=== PATIENT | male | born 2000 | race Caucasian/White ===

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

== ENCOUNTER 2023-07-13 06:51 | Emergency (ER) | payer OTHER, SELFPAY ==
[2023-07-13 07:02] VITALS: BP 150/90; PULSE 112; RESP 20; TEMP 36.9; O2SAT 100
--- NOTE | 2023-07-13 08:40 | ED.GENADULT ---
HPI - General Adult General Chief complaint: Wound/Laceration Stated complaint: laceration Time Seen by Provider: 07/13/23 08:21 History of Present Illness HPI narrative: 22-year-old male presents to the emergency department for evaluation of injury to his left hand. Patient does admit to punching something last night. Patient is unsure of his current tetanus status. Patient denies any other pain or injury. Related Data Allergies Allergy/AdvReac Type Severity Reaction Status Date / Time No Known Allergies Allergy Verified 07/13/23 08:20 Review of Systems Review of Systems: All systems reviewed & are unremarkable except as noted in HPI and below PMFSH Social History Social History (Updated 10/19/21 @ 18:26 by Karol Ty, [employer] WORKER) Smoking packs per day: 1 Smoking cigarettes per day: 20.0 Smoking status: Current every day smoker Alcohol intake: current Exam Narrative: APPEARANCE: Well appearing, no pain, no distress, well-nourished. HEAD: normocephalic, atraumatic. EYES: PERRLA/EOMI, conjunctivae clear. NECK: Supple. No adenopathy, no masses. RESPIRATORY: Airway patent, respirations nonlabored. Clear to auscultation bilaterally, no rales, rhonchi, wheezing. CARDIOVASCULAR: Regular rate and rhythm without murmurs rubs or gallops. ABDOMINAL: Soft, nontender, nondistended, normal bowel sounds MUSCULOSKELETAL: Moves all extremities. Strength/ROM intact, No edema, No calf tenderness. NEURO: Alert. Cranial nerves II through XII intact. Good gait. Good coordination SKIN: laceration to dorsum of left hand Course Vital Signs Vital signs: Vital Signs Temperature 98.5 F 07/13/23 07:02 Pulse Rate 112 H 07/13/23 07:02 Respiratory Rate 20 07/13/23 07:02 Blood Pressure 150/90 H 07/13/23 07:02 Pulse Oximetry 100 07/13/23 07:02 Oxygen Delivery Room Air 07/13/23 07:02 Temperature 98.5 F 07/13/23 07:02 Pulse Rate 88 07/13/23 08:53 Respiratory Rate 19 07/13/23 08:53 Blood Pressure 137/85 07/13/23 08:53 Pulse Oximetry 100 07/13/23 08:53 Oxygen Delivery Room Air 07/13/23 07:02 Medical Decision Making [facility] Narrative Medical decision making narrative: 22-year-old male present to the emergency department for evaluation for a laceration to the knuckle over the 3rd finger on the left hand. Patient declined any x-rays and patient declined sutures. laceration is superficial and will heal without laceration repair Vital Signs Vital Signs: Vital Signs Temperature 98.5 F 07/13/23 07:02 Pulse Rate 112 H 07/13/23 07:02 Respiratory Rate 20 07/13/23 07:02 Blood Pressure 150/90 H 07/13/23 07:02 Pulse Oximetry 100 07/13/23 07:02 Oxygen Delivery Room Air 07/13/23 07:02 Temperature 98.5 F 07/13/23 07:02 Pulse Rate 88 07/13/23 08:53 Respiratory Rate 19 07/13/23 08:53 Blood Pressure 137/85 07/13/23 08:53 Pulse Oximetry 100 07/13/23 08:53 Oxygen Delivery Room Air 07/13/23 07:02 Discharge Plan Discharge Clinical Impression: Laceration Patient Disposition: Home, Self-Care Condition: Stable Instructions: Antibiotic Form, Steristrips (ED) Additional Instructions: you declined x-rays and suture repair of the laceration. Wound care as directed. Have close follow-up with your primary care physician. Prescriptions: No Action cephalexin 500 mg capsule 500 mg PO Q12H Qty: 20 0RF Follow-up/Referrals: UNKNOWN,DOCTOR [Primary Care Provider] -
[2023-07-13 08:53] VITALS: BP 137/85; PULSE 88; RESP 19; O2SAT 100
== END 2023-07-13 08:54 | disposition home or self-care (01) ==
PROVIDERS: Emergency Provider Emergency Medicine
DX: S61.412A Laceration without foreign body of left hand, initial encounter (principal); W22.8XXA Striking against or struck by other objects, initial encounter; F17.210 Nicotine dependence, cigarettes, uncomplicated; Z23 Encounter for immunization
CPT/HCPCS: 90471; 99282

== ENCOUNTER 2023-10-31 09:25 | Emergency (ER) | payer OTHER, SELFPAY ==
[2023-10-31] VITALS (8 sets, daily range): BP systolic 105–137; BP diastolic 56–87; PULSE 79–116; RESP 11–20; TEMP 36.6–36.8; O2SAT 97–100
--- NOTE | ~2023-10-31 | CT_ITS ---
EXAMINATION: CT hand RT wo con DATE: 10/31/2023 12:48 INDICATION: Right hand pain TECHNIQUE: High resolution computed tomography (CT) of the right hand was performed without intraveno us contrast. Additional sagittal and coronal reconstructions were performed. Automated exposure contr ol and iterative reconstruction technique were employed. The dose-length product was 439.42 mGy-cm. COMPARISON: None FINDINGS: There is a subtle nondisplaced fracture across the tubercle of the palmar aspect of the trapezium bes t appreciated on the axial images. This extends to the floor of the groove of the flexor carpi radial is tendon There is a second likely of chronic oriented nondisplaced fracture across the trapezoid serjio ears to extend to the articular surface best appreciated on the sagittal images. Neither are discerni ble on the prior radiographs. Alignment remains essentially anatomic. No other fractures identified. Joint spaces are normal. Soft tissues are unremarkable. IMPRESSION: 1. Subtle nondisplaced fractures of the trapezium and trapezoid. Reviewed, dictated and finalized at location A.
--- NOTE | ~2023-10-31 | XR_ITS ---
XR hand RT min 3V Ordering provider: Nessa Espino PA-C History: . right hand pain, injury, 2ND/3RD METACARPAL LACERATIONS . Comparison: January 24, 2015 FINDINGS: BONES: No acute fracture or dislocation. JOINT SPACES: Normal. SOFT TISSUES: Normal. IMPRESSION: No acute osseous abnormality right hand. Reviewed, dictated and finalized at location A.
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
[2023-10-31] MEDS: TETANUS,DIPHTHERIA,AC PERTUSSIS ADULT (0.5 ML) BOOSTRIX IM (10:02)
[2023-10-31 10:46] LABS: Ethanol 148 mg/dL (<10)
[2023-10-31] MEDS: IBUPROFEN 600 MG TABLET PO (10:48)
== END 2023-10-31 14:07 | disposition home or self-care (01) ==
PROVIDERS: Emergency Provider Physician Assistant
DX: S62.184A Nondisplaced fracture of trapezoid [smaller multangular], right wrist, initial encounter for closed fracture (principal); S62.174A Nondisplaced fracture of trapezium [larger multangular], right wrist, initial encounter for closed fracture; S61.411A Laceration without foreign body of right hand, initial encounter; Z23 Encounter for immunization; F17.210 Nicotine dependence, cigarettes, uncomplicated; Y04.0XXA Assault by unarmed brawl or fight, initial encounter
CPT/HCPCS: 12001; 29125; 36415; 73130; 73200; 80307; 90471; 90715; 99284; A9270

== ENCOUNTER 2023-11-02 17:10 | Emergency (ER) | payer OTHER, SELFPAY ==
[2023-11-02 18:05] VITALS: BP 122/82; PULSE 86; RESP 20; TEMP 36.6; O2SAT 100
--- NOTE | 2023-11-02 18:06 | ED.UPPEXIN ---
HPI - Extremity Injury (Upper) General Chief Complaint: Extremity Injury, Upper Stated Complaint: re-evaluation of extremity Time Seen by Provider: 11/02/23 18:06 Focused HPI: This is a 23-year-old male that presents to the emergency department for right wrist pain. He was evaluated in the ER here and diagnosed with a wrist fracture. Also had sutures placed on the hand. He has had worsening pain today which prompted him to be seen. Splint in place. Denies fevers or erythema. GENERAL: Well-appearing, well-nourished, and in no acute distress. HEAD: Normocephalic, atraumatic. CHEST: Clear to auscultation. ?No respiratory distress. HEART: Regular rate and rhythm.? NEURO: ?Alert and oriented x3. Patient screened in triage and initial orders placed.? ?Additional care and disposition to be based upon?diagnostic testing and treatment. Related Data Allergies Allergy/AdvReac Type Severity Reaction Status Date / Time No Known Allergies Allergy Verified 10/31/23 09:37 Review of Systems Review of Systems: CONSTITUTIONAL: Denies fever MUSCULOSKELETAL: Reports joint pain, and myalgia. All systems reviewed & are unremarkable except as noted in HPI and below PMFSH Past Medical History Medical History (Updated 11/02/23 @ 20:15 by Nessa Espino PA-C) History of anxiety Social History Social History (Updated 10/19/21 @ 18:26 by Karol Ty, SILK SCREEN ETCHER) Smoking packs per day: 1 Smoking cigarettes per day: 20.0 Smoking status: Current every day smoker Alcohol intake: current Exam Narrative: GENERAL: Well-appearing, well-nourished, and in no acute distress. HEAD: Normocephalic, atraumatic. EYES: EOMI. EXTREMITIES: Mild edema about the hand. normal radial pulse. Normal sensation. no erythema. Sutures in place without surrounding redness or abnormal drainage SKIN: Warm, dry, no rash. NEURO: No focal deficits. Alert and oriented x3. PSYCH: Normal mood and affect Course Course Emergency Course: Patient agrees with plan of care Vital Signs Vital signs: Vital Signs Temperature 97.9 F 11/02/23 18:05 Pulse Rate 86 11/02/23 18:05 Respiratory Rate 20 11/02/23 18:05 Blood Pressure 122/82 07/26/24 18:05 Pulse Oximetry 100 07/26/24 18:05 Oxygen Delivery Room Air 11/02/23 18:05 Temperature 97.9 F 11/02/23 18:05 Pulse Rate 86 11/02/23 18:05 Respiratory Rate 20 11/02/23 18:05 Blood Pressure 122/82 11/02/23 18:05 Pulse Oximetry 100 11/02/23 18:05 Oxygen Delivery Room Air 11/02/23 18:05 Procedures Orthopedic Splinting/Casting Injury #1: Splinting/Casting Date: 11/02/23 Splinting/Casting Time: 20:21 Side: right Upper Extremity Injury Location: wrist Upper Extremity Immobilizer: volar splint Splint: customized in ED OCL: volar Pre-Procedure Neuro Vascular Exam: normal Post-Procedure Neuro Vascular Exam: normal Other Orthopedic Equipment: other (sling) MDM - Extremity Injury (Upper) MDM Narrative Medical decision making narrative: Patient presents to the emergency department for right wrist pain. I evaluated him in the ER 2 days prior. He was noted to have nondisplaced fractures of his trapezium and trapezoid. He also had a laceration around the MCP joint dorsal surface that I sutured. He is afebrile and nontoxic appearing. He is neurovascularly intact. There was no abnormal drainage or redness surrounding his wound. I did replace his splint. Patient was taken to [facility] after I saw him so did not have any of his discharge paperwork to be able to make his follow-up appointment. Once again will be given referral for further follow-up. Concerned he may run out of pain medication before being able to see hand surgery. Will be given an additional prescription for Rienzi so he has enough. He was given warnings to return to the ER Differential Diagnosis Differential diagnosis: Likely fracture of w
[2023-11-02] MEDS: ACETAMINOPHEN 500 MG TABLET 1000 MG PO (19:44)
[2023-11-02] MEDS: oxyCODONE HCL (*CRX) 5 MG TAB IR PO (19:45)
[2023-11-02] MEDS: KETOROLAC 30 MG/ML VIAL (*BKC) IM (19:58)
--- NOTE | 2023-11-02 20:06 | PC.NURSE ---
2006-VOLAR FIBERGLASS SPLINT APPLIED BY PROVIDER. SLING APPLIED.
[2023-11-02 20:25] VITALS: BP 105/64; PULSE 79; RESP 18; TEMP 37.4; O2SAT 100
== END 2023-11-02 20:40 | disposition home or self-care (01) ==
PROVIDERS: Emergency Provider Physician Assistant
DX: S62.174D Nondisplaced fracture of trapezium [larger multangular], right wrist, subsequent encounter for fracture with routine healing (principal); S62.184D Nondisplaced fracture of trapezoid [smaller multangular], right wrist, subsequent encounter for fracture with routine healing; S61.411D Laceration without foreign body of right hand, subsequent encounter; X58.XXXD Exposure to other specified factors, subsequent encounter
CPT/HCPCS: 29125; 96372; 99283; 99284; A4565; A9270; J1885

== ENCOUNTER 2024-03-26 11:10 | Emergency (ER) | payer OTHER, SELFPAY ==
--- NOTE | 2024-03-26 11:40 | PC.NURSE ---
pt states he is unable to provide urine sample at this time
[2024-03-26] MEDS: SODIUM CHLORIDE 0.9% IV 1,000 ML 999 ML IV CONT (12:00)
[2024-03-26] MEDS: ONDANSETRON INJ 4 MG/2 ML VIAL IV PUSH (12:01)
[2024-03-26] MEDS: PROCHLORPERAZINE EDISYLATE 10 MG/2 ML VIAL 5 MG IV PUSH (12:08)
[2024-03-26 12:15] LABS: Basophils Percent Auto 0.4 % (0.2-1.2); Eosinophils Absolute Auto 0.1 K/mm3 (0-0.3); Eosinophils Percent Auto 1.6 % (0-4.4); Hematocrit 42.6 % (42.0-52.0); Immature Granulocyte Absolute 0.09 K/mm3 (0.00-0.031); Immature Granulocyte Percent A 1.1 % (0-0.5); Lymphocytes Absolute Auto 2.03 K/mm3 (0.9-3.2); Lymphocytes Percent Auto 24.3 % (18.3-44.2); Mean Corpuscular HGB Conc 35.2 g/dl (32-36); Mean Corpuscular Hemoglobin 33.1 pg (26-34); Mean Platelet Volume 8.8 fl (7.4-10.4); Monocytes Absolute Auto 0.7 K/mm3 (0.1-0.6); Monocytes Percent Auto 8.4 % (2.6-8.5); Neutrophils Absolute Auto 5.4 K/mm3 (1.3-6.7); Neutrophils Percent Auto 64.2 % (45.5-73.1); Platelet Count Result 296 k/mm3 (150-375); Red Blood Count 4.53 M/mm3 (4.6-6.20); Red Cell Distribution Width 12.3 % (11.5-14.5); White Blood Count 8.4 K/mm3 (4.5-10.0)
[2024-03-26 12:21] VITALS: BP 122/81; PULSE 76; RESP 18; TEMP 37.1; O2SAT 100
[2024-03-26 12:26] LABS: Alanine Aminotransferase 75 U/L (6-50); Albumin Level 5.3 g/dL (3.5-5.1); Alkaline Phosphatase 65 U/L (38-126); Anion Gap 10 mmol/L (4-12); Aspartate Amino Transferase 86 U/L (17-59); Bilirubin,Total 0.7 mg/dL (0.2-1.3); Blood Urea Nitrogen 15 mg/dL (9-20); Calcium 9.8 mg/dL (8.4-10.2); Carbon Dioxide 23 mmol/L (22-30); Chloride 106 mmol/L (98-107); Estimated CRCL calculation 113 ml/min; Estimated Glomerular Filt Rate > 60; Glucose 112 mg/dL (65-110); Lipase 150 U/L (23-300); Potassium 3.4 mmol/L (3.4-5.0); Sodium 139 mmol/L (137-145)
[2024-03-26 12:38] LABS: Add Urine Microscopic? YES; Appearance Urine Clear (Clear); Bacteria Urine None Seen /hpf; Bilirubin Urine Negative (Negative); Blood Urine Negative (Negative); Color Urine Dark Yellow (Yellow); Glucose Urine UA Negative (Negative); Ketones Urine 1+ mg/dL (Negative); Leukocyte Esterase Ur Trace LEU/UL (Negative); Nitrate Urine Negative (Negative); Protein Urine 2+ mg/dL (Negative); RBC Urine 0-2 /hpf (0-2); Specific Grav Ur 1.031 (1.001-1.035); Squamous Epithelial Cell Urine None Seen /hpf (Few); Urobilinogen Urine 0.2 mg/dL (<2.0); WBC Urine 0-5 /hpf (0-3)
--- NOTE | 2024-03-26 14:17 | ED_ITS ---
HPI - Nausea/Vomiting/Diarrhea General Chief complaint: Nausea/Vomiting/Diarrhea Stated complaint: vomiting x1 week Time Seen by Provider: 03/26/24 11:14 Source: patient Mode of arrival: ambulatory Limitations: no limitations History of Present Illness HPI Narrative: 23-year-old otherwise healthy his here with a complaint of nausea, vomiting diarrhea. Patient states that he was recently diagnosed with colitis finished a course of antibiotics and was at work this morning started to have nausea and vomiting. He denies any fever or chills. Had few loose stools. Feels extremely anxious. He smokes marijuana on a daily basis. MD elicited complaint: nausea, vomiting and diarrhea Onset (ago): day(s) (1) Description of vomiting: watery Description of diarrhea: watery Associated abdominal pain: No Pain consistency: constant Severity: moderate Exacerbating factors: none Relieving factors: none Associated symptoms: denies other symptoms Related Data Allergies Allergy/AdvReac Type Severity Reaction Status Date / Time No Known Allergies Allergy Verified 03/26/24 11:11 Review of Systems 2 Review of Systems: All systems reviewed & are unremarkable except as noted in HPI and below Constitutional: Constitutional: Reports no additional constitutional complaints Eyes: Eyes: Reports no additional eye complaints ENT: Reports system reviewed and no additional complaints, except as documented Cardiovascular: Cardiovascular: Reports no additional cardiovascular complaints Respiratory: Respiratory: Reports as per HPI Gastrointestinal: Gastrointestinal: Reports as per HPI Musculoskeletal: Musculoskeletal: Reports no additional musculoskeletal complaints Integumentary/Breasts: Skin/Breast: Reports system reviewed and no additional complaints, except as docu Neurologic: Reports system reviewed and no additional complaints, except as documented Endocrine: Endocrine: Reports no additional endocrine complaints [facility] Past Medical History Medical History History of anxiety Social History Social History Smoking packs per day: 1 Smoking cigarettes per day: 20.0 Smoking status: Current every day smoker Tobacco type: e-cigarettes/vaping Alcohol intake: current Exam 2 Narrative: GENERAL: Well-appearing, well-nourished, and in no acute distress. HEAD: Normocephalic, atraumatic. EYES: PERRLA and EOMI. ENT: Nares clear, no rhinorrhea or epistaxis. Mucous membranes moist. NECK: Supple. CHEST: Clear to auscultation. No respiratory distress. HEART: Regular rate and rhythm. No murmur heard. Normal peripheral pulses. ABDOMEN: Soft, nontender, nondistended, normal active bowel sounds. EXTREMITIES: Normal range of motion. No edema. SKIN: Warm, dry, no rash. NEURO: No focal deficits. Alert and oriented x3. PSYCH: Normal mood and affect. Course Course Emergency Course: Patient was given IV fluids and Zofran his nausea is much improved. I did inform him about his lab work. He feels comfortable going home advised him to drink fluids as tolerated take Zofran as needed Vital Signs Vital signs: Vital Signs Temperature 37.1 C 03/26/24 12:21 Pulse Rate 76 03/26/24 12:21 Respiratory Rate 18 03/26/24 12:21 Blood Pressure 122/81 03/26/24 12:21 Pulse Oximetry 100 03/26/24 12:21 Oxygen Delivery Autopap 03/26/24 12:21 Temperature 37.1 C 03/26/24 12:21 Pulse Rate 76 03/26/24 12:21 Respiratory Rate 18 03/26/24 12:21 Blood Pressure 122/81 03/26/24 12:21 Pulse Oximetry 100 03/26/24 12:21 Oxygen Delivery Autopap 03/26/24 12:21 MDM - Nausea/Vomiting/Diarrhea Differential Diagnosis Differential diagnosis: Likely food poisoning, gastroenteritis and dehydration Medical Records Attestation: I reviewed the patient's medical records. Lab Data Attestation: I reviewed the patient's lab results. 03/26/24 12:08 03/26/24 12:08 Labs: Lab Results 03/26/24 03/26/24 Range/Units 12:08 12:26 WBC 8.4 (4.5-10.0) K/mm3 RBC 4.53 L (4.6-6.20) M/mm3 Hgb 15.0 (14.0-18.0) g/dL Hct 42.6 (42.0-52.0) % MCV 94.0 (80-100) fl MCH 33.1 (26-34) pg MCHC 35.2 (32-36) g/dl RDW 12.3 (11.5-14.5) % Plt Count 296 (150-375) k/mm3 MPV 8.8 (7.4-10.4) fl Immature Gran % (Auto) 1.1 H (0-0.5) % Neut % (Auto) 64.2 (45.5-73.1) % Lymph % (Auto) 24.3 (18.3-44.2) % [place] % (Auto) 8.4 (2.6-8.5) % Eos % (Auto) 1.6 (0-4.4) % Baso % (Auto) 0.4 (0.2-1.2) % Lymph # (Auto) 2.03 (0.9-3.2) K/mm3 [place] # (Auto) 0.7 H (0.1-0.6) K/mm3 Eos # (Auto) 0.1 (0-0.3) K/mm3 Baso # (Auto) 0.0 (0.0-0.1) K/mm3 Abs Immat Gran (auto) 0.09 H (0.00-0.031) K/mm3 Absolute Neuts (auto) 5.4 (1.3-6.7) K/mm3 Absolute Nucleated RBC 0.000 (0.0-0.012) K/mm3 Nucleated RBC % 0.0 (0.0-0.2) % Sodium 139 (137-145) mmol/L Potassium 3.4 (3.4-5.0) mmol/L Chloride 106 (98-107) mmol/L Carbon Dioxide 23 (22-30) mmol/L Anion Gap 10 (4-12) mmol/L BUN 15 D (9-20) mg/dL Creatinine 0.80 (0.7-1.3) mg/dL Estim Creat Clear Calc 113 ml/min Estimated GFR > 60 (59 - ) Glucose 112 H (65-110) mg/dL Calcium 9.8 (8.4-10.2) mg/dL Total Bilirubin 0.7 (0.2-1.3) mg/dL AST 86 H (17-59) U/L ALT 75 H (6-50) U/L Alkaline Phosphatase 65 (38-126) U/L Total Protein 8.0 (6.3-8.2) g/dL Albumin 5.3 H (3.5-5.1) g/dL Lipase 150 (23-300) U/L Urine Color Dark yellow (Yellow) Urine Appearance Clear (Clear) Urine pH 6.0 (5.0-9.0) Ur Specific [place] 1.031 (1.001-1.035) Urine Protein 2+ H (Negative) mg/dL Urine Glucose (UA) Negative (Negative) mg/dL Urine Ketones 1+ H (Negative) mg/dL Ur Blood (Man) Negative (Negative) Urine Nitrate Negative (Negative) Urine Bilirubin Negative (Negative) Urine Urobilinogen 0.2 (<2.0) mg/dL Leukocyte Esterase Rfl Trace H (Negative) DEBBIE/UL Urine RBC 0-2 (0-2) /hpf Urine WBC 0-5 (0-3) /hpf Ur Squamous Epith Cells None seen (Few) /hpf Urine Bacteria None seen /hpf Urine Casts 3-5 Discharge Plan Discharge Clinical Impression: Gastroenteritis Patient Disposition: Home, Self-Care Condition: Stable Instructions: Acute Nausea and Vomiting (ED) Patient Language: Tajik Prescriptions: New ondansetron 4 mg tablet,disintegrating 4 mg PO Q6-8H PRN (Reason: nausea and vomiting) Qty: 14 0RF No Action cephalexin 500 mg capsule 500 mg PO Q12H Qty: 20 0RF cephalexin 500 mg capsule 500 mg PO Q8H 5 Days Qty: 15 0RF hydrocodone-acetaminophen 5-325 mg tablet 1 tablet PO Q8H PRN (Reason: pain) Qty: 20 0RF hydrocodone-acetaminophen 5-325 mg tablet 1 tablet PO Q8H PRN (Reason: pain) Qty: 10 0RF Follow-up/Referrals: Bhargavi Gallagher DO [Physician] - UNKNOWN,DOCTOR [Primary Care Provider] - Time of Disposition: 14:23
== END 2024-03-26 14:31 | disposition home or self-care (01) ==
PROVIDERS: Emergency Provider Family Medicine
DX: K52.9 Noninfective gastroenteritis and colitis, unspecified (principal); F17.290 Nicotine dependence, other tobacco product, uncomplicated
CPT/HCPCS: 36415; 80053; 81001; 83690; 85025; 96361; 96374; 96375; 99284; J0780; J2405; J7030

== ENCOUNTER 2024-05-07 06:30 | Emergency (ER) | payer OTHER, SELFPAY ==
[2024-05-07 06:31] VITALS: BP 146/89; PULSE 118; RESP 26; TEMP 36.6; O2SAT 100
--- OUTSIDE RECORDS SUMMARY | 2024-05-07 06:32 | XMS_ITS | Clinical Summary ---
Author Organization [facility] Address [address] [place] [address]. [place], [place] [id number] [place] [id number] Care Team Providers Care Resident Director Name Role Phone Genevieve Nagy MD Primary Care Provider [phone] Allergies No known active allergies Medications hydrOXYzine 25 MG tablet Take 25 mg by mouth 3 (three) times daily as needed. 1 Active promethazine 25 MG tablet Take 1 tablet (25 mg total) by mouth every 6 (six) hours as needed for Nausea. 20 tablet 1 Active capsaicin 0.025 % cream Apply topically 3 (three) times daily. 45 g 1 Active naproxen (NAPROSYN) 500 MG tablet Take 1 tablet (500 mg total) by mouth 2 (two) times daily with meals. 60 tablet 3 Active ondansetron (ZOFRAN-ODT) 4 MG disintegrating tablet Take 1 tablet (4 mg total) by mouth every 8 (eight) hours as needed for Nausea. 20 tablet 3 Active HYDROcodone-acetam inophen (NORCO) 5-325 MG tabletIndications: Acute Pain < 3 Day Supply Take 1 tablet by mouth every 6 (six) hours as needed for Pain. Indications: Acute Pain < 3 Day Supply 12 tablet 3 Active Active Problems Problem Noted Date Diagnosed Date Appendicitis 11/11/2020 Asthma, intermittent (HHS/HCC) 08/14/2011 Family History Relation Status Comments Brother 1 Alive Brother 2 Alive Brother 3 Alive Father Alive Mother Alive Sister Alive Social History Tobacco Use Types Packs/Day Years Used Date Smoking Tobacco: Every Day Electronic Cigarettes Smokeless Tobacco: Never Tobacco Cessation:Ready to Q uit: Not Asked; Counseling Given: Not Answered Alcohol Use Standard Drinks/Week Comments Not Currently 0 (1 standard drink = 0.6 oz pur e alcohol) AUDIT-C Answer Date Recorded Q1: How often do you have a drink containing alc ohol? Never 11/15/2019 Average Number of Drinks Not on file 020 Frequency of Binge Drinking Not on file 11/2019 Sex and Gender Information Value Date Recorded Sex Assigned at Not on file Legal Sex Male 4:11 PM CDT Gender Identity Not on file Sexual Orientation Not on file Last Filed Vital Signs Vital Sign Reading Time Taken Comments Blood Pressure 98/79 10/02/2022 8:24 AM CDT Pulse 68 10/02/2022 8:24 AM CDT Temperature 36.1 ??C (97 ??F) 10/02/2022 8:24 AM CDT Respiratory Rate 18 10/02/2022 8:24 AM CDT Oxygen Saturation 99% 10/02/2022 8:24 AM CDT Inhaled Oxygen Concentration - - Weight 62.3 kg (137 lb 5.6 oz) 10/02/2022 8:24 A M CDT Height 180.3 cm (5' 11 ) 10/02/2022 8:24 AM CDT Body Mass Index 19.16 10/02/2022 8:24 AM CDT Plan of Treatment Health Maintenance Due Date Last Done Comments Annual Physical 2005 Pneumococcal Vaccine: Pediatrics (0 to 5 Years) and At-Risk Patients (6 to 64 Years) (1 of 2 - PCV) 2008 Meningococcal B Vaccine (1 of 2 - Standard) 2018 Hepatitis C 2020 COVID-19 Vaccine ( - season) 2023 DTaP, Tdap and Td Vaccines (7 - Td or Tdap) 12/11/2023 12/10/2013, 07/29/2007, 07/29/2007, Additional history exists Influenza Adult (#1) 2024 05/12/2013, 04/30/2012, 02/09/2011, Additional history exists Hepatitis B Vaccines Completed 02/02/2003, 02/02/2003, 2002, Additional history exists HPV Vaccines Completed 06/18/2020, 11/03/2016 Meningococcal Vaccine Completed 06/18/2020, 014 RSV Immunizations Under 20 Months Aged Out No longer eligible based on patient's age to complete this topic Insurance [employer] [facility] Advance Directives * Full Code (Latest Code Status on File) Date Activated Date Inactivated Comments 11/11/2020 3:40 PM 11/12/2020 1:22 PM Care Teams Resident Director Relationship Specialty Start Date End Date Genevieve Nagy MD [address] [facility] [id number] [place] [address] PCP - General FAMILY PRACTICE 10/02/22
--- OUTSIDE RECORDS SUMMARY | 2024-05-07 06:32 | XMS_ITS | Clinical Summary ---
Author Organization [facility] Address [address] [place] [address] Care Team Providers Care Fire And Safety Helper Name Role Phone Rocio Conteh MD Primary Care Provider [phone] Source Comments [facility],non-owned Affiliates and Associated Physician Practices is amultiple site organization consisting of ambulatory clinics and hospital sitesin [place], [place], [place] and [place]. This disclosure is being madepursuant to the Care Everywhere program and may not contain all information available regarding this patient. Last updated 17.[facility] Allergies No known active allergies Medications * Be aware that medications may not be up to date on this document. Alwaysverify current medications with the patient. Medication Sig Dispensed Refills Start Date End Date Status albuterol HFA (PROVENTIL;VENTOLIN ;PROAIR) 108 (90 Base) MCG/ACT inhaler Inhale 2 puffs by mouth every 4 hours as needed for Wheezing or Cough OK TO SUBSTITUTE ANY BRAND. 1 Inhaler 1 02/21/2019 Active Additional Information Patient not taking.Reported on 06/18/2020 sertraline (ZOLOFT) 25 MG tabletIndications:S ocial Anxiety Disorder Take 1 (one) tablet by mouth once daily Reasons: Social Anxiety Disorder 30 tablet 1 09/20/2020 Active hydrOXYzine hcl (ATARAX) 25 MG tablet Take 1 (one) tablet by mouth 3 times daily as needed (anxiety) 45 tablet 09/20/2020 Active Active Problems Problem Noted Date Diagnosed Date Asthma, intermittent 08/14/2011 Resolved Problems Problem Noted Date Diagnosed Date Resolved Date BMI (body mass index), pedia tric, 85% to less than 95% for age 0912/10/2013 11/04/2016 Immunizations Name Administration Dates Next Due INFLUENZA VACCINE, TRIV. (AF LURIA, FLUZONE TRIVALENT; 6MO+) (IIV3) 04/30/2012,02/09/2011,02/24/2010 DTaP VACCINE IM (6wk-6yrs) 07/29/2007,,02/02/2003,11/28,2002 HEP A PEDS 2 DOSE 07/26/2006,03/27/2005 HEP B VACCINE, PED/ADOL 02/02/2003,11/28,2002,07/21 HIB BOOSTER 12/01/2003, 3,2002,09/22 Human Papilloma Virus Nineva lent Vaccine 06/18/2020,11/03/2016 INFLUENZA VACCINE 02/15/2009,03/27/2005 INFLUENZA VACCINE, QUADR. (F LUZONE; FLULAVAL; FLUARIX; AFLURIA QUADRIVALENT; 6MO+), 0.5 ML (IIV4) 05/12/2013 MENINGOCOCCAL CONJUGATE (MCV4P) 06/18/2020,12/10 MMR 07/26/2006,03/04/2004 PNEUMOCOCCAL CONJ, PEDS 02/02/2003,2002, POLIO IPV 07/29/2007, 3,2002,09/22 TDAP (7yrs+) 12/10/2013 VARICELLA 07/26/2006,12/01/2003 Social History Tobacco Use Types Packs/Day Years Used Date Smoking Tobacco: Never Smokeless Tobacco: Never Alcohol Use Standard Drinks/Week Comments Never 0 (1 standard drink = 0.6 oz pur e alcohol) Sex and Gender Information Value Date Recorded Sex Assigned at Not on file Gender Identity Not on file Sexual Orientation Not on file Last Filed Vital Signs Vital Sign Reading Time Taken Comments Blood Pressure 130/77 09/20/2020 1:16 PM CDT Pulse 80 07/29/2020 11:08 AM CDT Temperature 36.5 ??C (97.7 ??F) 11/16/2020 11:05 AM C DT Respiratory Rate 18 07/29/2020 11:08 AM CDT Oxygen Saturation 99% 07/29/2020 11:08 AM CDT Inhaled Oxygen Concentration - - Weight 59.4 kg (131 lb) 11/16/2020 11:05 AM CDT Height 169.5 cm (5' 6.75 ) 11/03/2016 1:30 PM CD T Body Mass Index - - Plan of Treatment Health Maintenance Due Date Last Done Comments PNEUMOCOCCAL VACCINE (1 of 1 - PPSV23) 2008 02/02/2003, 2002, 2002 HIV SCREENING 2017 MENINGOCOCCAL (Group B) VACC INE (1 of 2 - Standard) 2018 HEPATITIS C SCREENING 07/16/2020 COVID-19 VACCINE (1 - 2023-2 5 season) 2023 INFLUENZA VACCINE (#1) 2023 4, 04/30/2012, 02/09/2011, Additional history exists DTAP/TDAP/TD VACCINES (7 - T d or Tdap) 12/11/2023 12/10/2013, 07/29/2007, 02/08/2004, Additional history exists DEPRESSION SCREENING 04/09/2024 ZOSTER VACCINE (1 of 2) 2052 HEPATITIS B VACCINE Completed 02/02/2003, 2002, 2002, Additional history exists HIB VACCINE Completed 12/01/2003, 01/08, 2002, Additional history exists HPV VACCINE Completed 06/18/2020, 11/03/2016 MENINGOCOCCAL VACCINE Completed 06/18/2020, 014 Goals Goal Patient Goal Type Associated Problems Recent Progress Patient-Stated? Author Use safety retraint in car Lifestyle On track( 021 11:06 AM CDT) No Radha Willson, IMANI Care Teams Fire And Safety Helper Relationship Specialty Start Date End Date Rocio Conteh MD PCP - General Pediatrics 11/27/17
--- OUTSIDE RECORDS SUMMARY | 2024-05-07 06:33 | XMS_ITS | Referral Summary ---
Author Organization [facility] Address [address] [place] [address] Care Team Providers Care Tabber Name Role Phone Rocio Conteh MD Primary Care Provider [phone] Source Comments [facility],non-owned Affiliates and Associated Physician Practices is amultiple site organization consisting of ambulatory clinics and hospital sitesin [place], [place], [place] and [place]. This disclosure is being madepursuant to the Care Everywhere program and may not contain all information available regarding this patient. Last updated 17.[facility] Allergies No known active allergies Medications * [...] Mass Index - - Plan of Treatment Not on file Goals Goal Patient Goal Type Associated Problems Recent Progress Patient-Stated? Author Use safety retraint in car Lifestyle On track( 021 11:06 AM CDT) No Radha Willson, IMANI Care Teams Tabber Relationship Specialty Start Date End Date Rocio Conteh MD PCP - General Pediatrics 11/27/17
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
--- OUTSIDE RECORDS SUMMARY | 2024-05-07 06:33 | XMS_ITS | Clinical Summary ---
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 Gender Identity Not on file Sexual Orientation Not on file Obstetrics History Last Filed Vital Signs Vital Sign Reading Time Taken Comments Blood Pressure 130/82 09/26/2022 10:26 AM CDT Pulse 92 09/26/2022 10:26 AM CDT Temperature 36.5 ??C (97.7 ??F) 09/26/2022 10:26 AM C DT Respiratory Rate 16 09/26/2022 10:26 AM CDT Oxygen Saturation 99% 09/26/2022 10:26 AM CDT Inhaled Oxygen Concentration - - Weight 64.9 kg (143 lb 1.3 oz) 09/26/2022 10:26 AM CDT Height 180.3 cm (5' 11 ) 09/26/2022 10:26 AM CDT Body Mass Index 19.96 09/26/2022 10:26 AM CDT Plan of Treatment Not on file Insurance [employer] [facility] Care Teams Fisher Clam Relationship Specialty Start Date End Date No, Physician PCP - General 09/26/22
--- OUTSIDE RECORDS SUMMARY | 2024-05-07 06:33 | XMS_ITS | Patient Health Summary ---
Author Organization [facility] Address [address] [place] [address] Care Team Providers Care Biometrics Analyst Name Role Phone Rocio Conteh MD Primary Care Provider [phone] Note from [facility],non-owned Affiliates and Associated Physician Practices is amultiple site organization consisting of ambulatory clinics and hospital sitesin [place], [place], [place] and [place]. This disclosure is being madepursuant to the Care Everywhere program and may not contain all information available regarding this patient. Last updated 17.[facility] Allergies No known active allergies Medications * Be aware that medications may not be up to date on this document. Alwaysverify current medications with the patient. * albuterol HFA (PROVENTIL;VENTOLIN;PROAIR) 108 (90 Base) MCG/ACT inhaler (Started 02/21/2019) Inhale 2 puffs by mouth every 4 hours as needed for Wheezing or Cough OK TO SUBSTITUTE ANY BRAND. 1 refill remaining * sertraline (ZOLOFT) 25 MG tablet(Started 09/20/2020) Take 1 (one) tablet by mouth once daily Reasons: Social Anxiety Disorder 1 refill by 09/20/2021 * hydrOXYzine hcl (ATARAX) 25 MG tablet(Started 09/20/2020) Take 1 (one) tablet by mouth 3 times daily as needed (anxiety) Active Problems Problem Noted Date Diagnosed Date Asthma, intermittent 08/14/2011 Resolved Problems Problem Noted Date Diagnosed Date Resolved Date BMI (body mass index), pedia tric, 85% to less than 95% for age 0912/10/2013 11/04/2016 Immunizations * INFLUENZA VACCINE, TRIV. (AFLURIA, FLUZONE TRIVALENT; 6MO+) (IIV3)(Given 04/30/2012, 02/09/2011, 02/24/2010) * DTaP VACCINE IM (6wk-6yrs)(Given 07/29/2007, 02/08/2004, 02/02/2003, 2002, 2002) * HEP A PEDS 2 DOSE(Given 07/26/2006, 03/27/2005) * HEP B VACCINE, PED/ADOL(Given 02/02/2003, 2002, 2002, 2002) * HIB BOOSTER(Given 12/01/2003, 02/02/2003, 2002, 2002) * Human Papilloma Virus Ninevalent Vaccine(Given 06/18/2020, 11/03/2016) * INFLUENZA VACCINE(Given 02/15/2009, 03/27/2005) * INFLUENZA VACCINE, QUADR. (FLUZONE; FLULAVAL; FLUARIX; AFLURIA QUADRIVALENT; 6MO+), 0.5 ML (IIV4)(Given 05/12/2013) * MENINGOCOCCAL CONJUGATE (MCV4P)(Given 06/18/2020, 12/10/2013) * MMR(Given 07/26/2006, 03/04/2004) * PNEUMOCOCCAL CONJ, PEDS(Given 02/02/2003, 2002, 2002) * POLIO IPV(Given 07/29/2007, 02/02/2003, 2002, 2002) * TDAP (7yrs+)(Given 12/10/2013) * VARICELLA(Given 07/26/2006, 12/01/2003) Social History Tobacco Use Types Packs/Day Years [...] CD T Body Mass Index - - Procedures * IMAGING/RADIOLOGY/XRAY RESULTS ORDER(Performed 06/17/2022) * IMAGING/RADIOLOGY/XRAY RESULTS ORDER(Performed 06/07/2022) * IMAGING/RADIOLOGY/XRAY RESULTS ORDER(Performed 02/10/2021) * IMAGING/RADIOLOGY/XRAY RESULTS ORDER(Performed 02/10/2021) * PATHOLOGY/CYTOLOGY REPORT ORDER(Performed 11/12/2020) * IMAGING/RADIOLOGY/XRAY RESULTS ORDER(Performed 11/11/2020) * SARS-COV-2 (COVID-19)+INFLU A+B AG (AMB) POC(Performed 09/23/2020) Performed for Viral illness * SARS-COV-2 (COVID-19)+INFLU A+B PCR RAPID(Performed 07/29/2020) * DIFFERENTIAL MANUAL(Performed 07/29/2020) * CBC W AUTO DIFFERENTIAL(Performed 07/29/2020) * LIPASE BLOOD(Performed 07/29/2020) * COMPREHENSIVE METABOLIC PANEL(Performed 07/29/2020) * CBC W AUTO DIFFERENTIAL(Performed 01/07/2019) Performed for Swollen lymph nodes * TSH REFLEX FREE T4(Performed 01/07/2019) Performed for Diarrhea, unspecified type * C-REACTIVE PROTEIN(Performed 01/07/2019) Performed for Swollen lymph nodes * ARIELA-CASTRO VIRUS ANTIBODY PANEL(Performed 01/07/2019) Performed for Swollen lymph nodes * LDH BLOOD(Performed 01/07/2019) Performed for Swollen lymph nodes * ERYTHROCYTE SEDIMENTATION RATE(Performed 01/07/2019) Performed for Swollen lymph nodes * SKIN TEST PPD - POINT OF CARE (AMB) STL(Performed 01/07/2019) Performed for Swollen lymph nodes * C-REACTIVE PROTEIN(Performed 11/27/2017) Performed for Nausea and vomiting, intractability of vomiting not specified, unspecified vomiting type, Diarrhea, unspecified type * ERYTHROCYTE SEDIMENTATION RATE(Performed 11/27/2017) Performed for Nausea and vomiting, intractability of vomiting not specified, unspecified vomiting type, Diarrhea, unspecified type * CELIAC AB SCREEN W REFLEX(Performed 11/27/2017) Performed for Nausea and vomiting, intractability of vomiting not specified, unspecified vomiting type, Diarrhea, unspecified type * COMPREHENSIVE METABOLIC PANEL(Performed 11/27/2017) Performed for Nausea and vomiting, intractability of vomiting not specified, unspecified vomiting type, Diarrhea, unspecified type * CBC W AUTO DIFFERENTIAL(Performed 11/27/2017) Performed for Nausea and vomiting, intractability of vomiting not specified, unspecified vomiting type, Diarrhea, unspecified type * IMAGING/RADIOLOGY/XRAY RESULTS ORDER(Performed 11/27/2017) * XR HAND RIGHT 3VW OR MORE(Performed 02/19/2015) Performed for Hand injuries, right, initial encounter * IMAGING/RADIOLOGY/XRAY RESULTS ORDER(Performed 01/24/2015) * XR ANKLE LEFT 3VW OR MORE(Performed 12/10/2013) Performed for Pain in ankle joint, left * XR HAND LEFT 2VW(Performed 06/14/2011) * STREP A SCREEN - POINT OF CARE (AMB)(Performed 02/18/2010) Performed for Streptococcal sore throat Results * IMAGING RADIOLOGY XRAY RESULTS ORDER (06/17/2022) Only the most recent of7 resultswithin the time period is included. Anatomical Region Laterality Modality Other 06/17/2022 Narrative 06/17/2022 Ordered by an unspecified provider. Scanned Document IMAGING * PATHOLOGY/CYTOLOGY REPORT ORDER (11/12/2020) Scanned Document LAB - PATHOLOGY/CYTO LOGY ORDERABLES * SARS-COV-2 (COVID-19)+INFLU A+B AG (AMB) POC (09/23/2020 4:41 PM CDT) Influenza A Antigen Rapid Negative Negative [facility] Influenza B Antigen Rapid Negative Negative [facility] SARS-CoV-2 Ag Negative Negative [facility] COVID Internal Control Acceptable Acceptable FARIBA AVELAR Lot # [id number] FARIBA AVELAR Expiration Date 02/02/22 FARIBA AVELAR Instrument Serial Number [id number] FARIBA AVELAR Microbiology SPECIMEN FROM NASAL FOSSAE / Unknown 09/23/2020 4:41 PM CDT Narrative FARIBA AVELAR - 09/23/2020 4:42 PM CDT Negative results should be treated as presumptive and confirmation with a molecular assay, if necessary, for patient management, may be performed. Negative results do not rule out COVID-19 and should not be used as the sole basis for treatment or patient management decisions, including infection control decisions. Negative results should be considered in the context of a patient's recent exposures, history and the presence of clinical signs and symptoms consistent with COVID-19. SARS-CoV-2 antigen testing is authorized for use with nasal (Veritor, BinaxNOW, or Piper) or nasopharyngeal (Piper) swabs collected from individuals who are suspected of COVID-19 infection by their healthcare provider within the first five days of onset of symptoms. ??False-positive SARS-CoV-2 test results are more likely to occur when disease prevalence is low (less than 1%). False-negative SARS-CoV-2 test results are more likely to occur when disease prevalence is high (greater than 10%). ?? This test has been authorized by the Food and Drug administration (FDA)under an Emergency??Use Authorization (EUA). This test is only authorized for the duration of time the declaration that circumstances exist justifying the authorization of emergency use of in vitro diagnostic tests for detection of SARS-CoV-2 virus and/or diagnosis of COVID-19 infection under section 564(b)(1) of the Act, 21 U.S.C 360bbb-3 (b)(1), unless the authorization is terminated or revoked sooner. Fact Sheets for this EUA assay are available upon request. Rocio Conteh MD LAB - POINT OF CARE ORDERABLES [facility]LLIE AVELAR [address] [place], [place] [address] [phone] * SARS-COV-2 (COVID-19)+INFLU A+B PCR RAPID (07/29/2020 10:30 AM CDT) COVID-19 PCR Not detected Not detected 07/30/19 11:01 AM CDT [facility] Influenza A PCR Not detected Not detected 07/29/2020 11:01 AM CDT [facility] Influenza B PCR Not detected Not detected 07/29/2020 11:01 AM CDT [facility] Microbiology SPECIMEN FROM NASOPHARYNGEAL STRUCTURE / Unknown Collection / Unknown 07/29/2020 10:30 AM CDT 07/29/2020 10:35 AM CDT Narrative [facility] - 07/29/2020 11:01 AM CDT Influenza assay performed by Nucleic Acid Amplification. Results do not exclude the possibility of a mixed viral infection. NOTE: ??Detecting and identifying specific viral nucleic acids from individuals exhibiting signs and symptoms of respiratory infection aids in the diagnosis of respiratory infection, if used in conjunction with other clinical and laboratory findings. The results of this test should not be used as the sole basis for diagnosis, treatment, or patient management decisions. This nucleic acid amplification assay performance was validated by [facility]. This test has been authorized by the Food and Drug administration (FDA)under an Emergency??Use Authorization (EUA). This test has been validated in accordance with the FDA's guidance document Policy for Diagnostic Testing in Laboratories Certified to perform High Complexity Testing under CLIA prior to Emergency Use Authorization for Coronavirus Disease-2019 during the Public Health Emergency issued on June 07, 2019. FDA independent review of this validation is pending. This test is only authorized for the duration of time the declaration that circumstances exist justifying the authorization of emergency use of in vitro diagnostic tests for detection of SARS-CoV-2 virus and/or diagnosis of COVID-19 infection under section 564(b)(1) of the Act, 21 U.S.C 360bbb-3 (b)(1), unless the authorization is terminated or revoked sooner. Fact Sheets for this EUA assay are available upon request. Berkley N Cornelia-Mac MD LAB - MICROB IOLOGY ORDERABLES [facility] [address] [address] * (ABNORMAL) DIFFERENTIAL MANUAL (07/29/2020 10:05 AM CDT) WBC Auto 9.6 x10E9/L 07/29/2020 11:01 AM CDT [facility] WBC Corrected 07/29/2020 11:01 AM CDT [facility] nRBC 07/29/2020 11:01 AM CDT [facility] Neutrophil % Manual 80(H) 31 - 78 % 07/29/2020 11:01 AM CDT [facility] Lymphocytes % Manual 15 13 - 54 % 07/29/2020 11:01 AM T [facility] Monocytes % Manual 4 4 - 13 % 07/29/2020 11:01 AM T [facility] Eosinophils % Manual 1 0 - 8 % 07/29/2020 11:01 AM T [facility] Cells Counted 100 # cells 07/29/2020 11:01 AM T [facility] RBC Morphology Normal 07/29/2020 11:01 AM T [facility] WBC Morph Normal 07/29/2020 11:01 AM T [facility] Platelet Estimation Normal 07/29/2020 11:01 AM T [facility] Blood BLOOD SPECIMEN / Unknown Venipuncture / Unknown 07/29/2020 10:05 AM CDT 07/29/2020 10:15 AM CDT Berkley Vela MD LAB - HEMATO LOGY ORDERABLES [facility] [place] [address] * (ABNORMAL) CBC W AUTO DIFFERENTIAL (07/29/2020 10:05 AM CDT) Only the most recent of3 resultswithin the time period is included. WBC 9.6 4.5 - 11.0 x10E9/L 07/29/2020 10:25 AM CDT [facility] WBC Corrected 07/29/2020 10:25 AM T [facility] RBC 4.78 4.50 - 5.30 x10E12/L 07/29/2020 10:25 AM T [facility] Hemoglobin 15.8 13.0 - 16.0 gm/dL 07/29/2020 10:25 AM T [facility] Hematocrit 42.5 37.0 - 49.0 % 07/29/2020 10:25 AM T [facility] MCV 88.9 78.0 - 98.0 fl 07/29/2020 10:25 AM T [facility] MCH 33.1 25.0 - 35.0 pg 07/29/2020 10:25 AM [facility] MCHC 37.2(H) 31.0 - 37.0 gm/dL 07/29/2020 10:25 AM [facility] Platelet Count 277 100 - 400 x10E9/L 07/29/2020 10:25 AM [facility] RDW-CV 11.6 11.5 - 14.0 % 07/29/2020 10:25 AM [facility] MPV 8.9 6.0 - 9.5 fl 07/29/2020 10:25 AM [facility] nRBC Auto 0 /100 WBC 07/29/2020 10:25 AM [facility] Blood BLOOD SPECIMEN / Unknown Venipuncture / Unknown 07/29/2020 10:05 AM CDT 07/29/2020 10:15 AM CDT Berkley Vela MD LAB - HEMATO LOGY ORDERABLES Performing Organization Address City/State/[facility] Co de Phone Number [facility] [address] [place] [phone] * (ABNORMAL) COMPREHENSIVE METABOLIC PANEL (07/29/2020 10:05 AM CDT) Only the most recent of2 resultswithin the time period is included. Pathologist [facility] Glucose 136(H) 70 - 105 mg/dL 07/29/2020 10:37 AM [facility] Sodium 137 136 - 145 mmol/L 07/29/2020 10:37 AM [facility] Potassium 3.7 3.5 - 5.1 mmol/L 07/29/2020 10:37 AM [facility] Chloride 106 98 - 107 mmol/L 07/29/2020 10:37 AM [facility] CO2 15(L) 20 - 28 mmol/L 07/29/2020 10:37 AM [facility] Calcium 10.01 9.08 - 10.48 mg/dL 07/29/2020 10:37 AM [facility] Anion Gap 16 5 - 20 mmol/L 07/29/2020 10:37 AM [facility] BUN 11.8 5.3 - 18.7 mg/dL 07/29/2020 10:37 AM [facility] Creatinine 0.94 0.61 - 1.07 mg/dL 07/29/2020 10:37 AM [facility] Alkaline Phosphatase 76 39 - 139 U/L 07/29/2020 10:37 AM [facility] ALT 16 6 - 46 U/L 07/29/2020 10:37 AM [facility] AST 38(H) 5 - 34 U/L 07/29/2020 10:37 AM [facility] Comment:Attention clinician: ??Reference Range change. Protein Total 8.3(H) 6.3 - 8.2 gm/dL 07/29/2020 10:37 AM [facility] Albumin 5.1(H) 3.3 - 4.9 gm/dL 07/29/2020 10:37 AM [facility] Bilirubin Total 0.8 0.3 - 1.2 mg/dL 07/29/2020 10:37 AM [facility] eGFR by MDRD >60 >60 mL/min/1.7 3m2 07/29/2020 10:37 AM [facility] eGFR by MDRD >60 >60 mL/min/1.7 3m2 07/29/2020 10:37 AM [facility] Blood BLOOD SPECIMEN / Unknown Venipuncture / Unknown 07/29/2020 10:05 AM T 07/29/2020 10:15 AM CDT Berkley Vela MD LAB - CHEMIS TRY ORDERABLES Performing Organization Address [facility]/ZIP Co de Phone Number [facility] [place] [address] * LIPASE BLOOD (07/29/2020 10:05 AM CDT) Lipase 20 10 - 220 U/L 07/29/2020 10:40 AM CDT [facility] Blood BLOOD SPECIMEN / Unknown Venipuncture / Unknown 07/29/2020 10:05 AM CDT 07/29/2020 10:15 AM CDT Berkley Vela MD LAB - CHEMIS TRY ORDERABLES Performing Organization Address [facility] Co de Phone Number [facility] [address] [place] [address] * TSH REFLEX FREE T4 (01/07/2019 11:51 AM CDT) TSH 1.840 0.450 - 4.500 uIU/mL [facility] INSURANCE BILL Blood BLOOD SPECIMEN / Unknown 01/07/2019 11:51 AM CDT 01/07/2019 Narrative Resulting Agency Comment Lab Testing performed at: [facility] ??[facility] [phone] Rocio Conteh MD LAB - CHEMISTRY CORAL SINGH Performing Organization Address City/[facility]/ZIP Co de Phone Number [facility] INSURANCE BILL [address] [place] [address] * C-REACTIVE PROTEIN (CRP) (01/07/2019 11:51 AM CDT) Only the most recent of2 resultswithin the time period is included. C-Reactive Protein <1 0 - 7 mg/L [facility] INSURANCE BILL Blood BLOOD SPECIMEN / Unknown 01/07/2019 11:51 AM CDT 01/07/2019 Narrative Resulting Agency Comment [facility] performed [facility]: [facility] [address] [facility] ??[place] [phone] Rocio Conteh MD LAB - CHEMISTRY CORAL SINGH [facility] INSURANCE BILL [address] [place] [address] * (ABNORMAL) ARIELA-CASTRO VIRUS PANEL (01/07/2019 11:51 AM CDT) Ariela-Castro Viral Capsid Antigen Antibody IgM <36.0 0.0 - 35.9 U/mL [facility] INSURANCE BILL Comment: ?Negative ?<36.0 ?Equivocal 36.0 - 43.9 ?Positive ?>43.9 Ariela-Castro Virus Early Antigen Antibody IgG 14.9(H) 0.0 - 8.9 U/mL [facility] INSURANCE BILL Comment: Hepatitis A, Hepatitis C and HIV antibodies may cross-react with this assay. ?Negative ?< 9.0 ?Equivocal ??9.0 - 10.9 ?Positive ?>10.9 Ariela-Castro Viral Capsid Antigen Antibody IgG 72.7(H) 0.0 - 17.9 U/mL [facility] INSURANCE BILL Comment: ?Negative ?<18.0 ?Equivocal 18.0 - 21.9 ?Positive ?>21.9 Ariela-Castro Virus Antibody IgG Nuclear Antigen <18.0 0.0 - 17.9 U/mL [facility] INSURANCE BILL Comment: ?Negative ?<18.0 ?Equivocal 18.0 - 21.9 ?Positive ?>21.9 Interpretation [facility] INSURANCE BILL Comment: ?EBV Interpretation Chart ?. ? Interpretation ?? EBV-IgM ??EA(D)-IgG ??VCA-IgG ??EBNA-IgG ?. ? EBV Seronegative ?- ?- ? - ?- ? Early Phase ? + ?- ? - ?- ? Acute Primary ? + ? +or- ? + ?- ? Infection ? Convalescence/Past ??- ? +or- ? + ?+ ? Infection ? Reactivated ?+or- ? +or- ? + ?+ ? Infection ?+ Antibody Present ?- Antibody Absent Blood BLOOD SPECIMEN / Unknown 01/07/2019 11:51 AM CDT 01/07/2019 Narrative Resulting Agency Comment Lab Testing performed at: [facility] [employer] [address] ??[facility] [phone] Rocio Conteh MD LAB - CHEMISTRY CORAL SINGH [facility] INSURANCE BILL [address] [place] [address] * SED RATE AUTO (ESR) (01/07/2019 11:51 AM CDT) Only the most recent of2 resultswithin the time period is included. Erythrocyte Sedimentation Rate Westergren 2 0 - 15 mm/hr [facility] Blood BLOOD SPECIMEN / Unknown 01/07/2019 11:51 AM CDT 01/07/2019 Narrative Resulting Agency Comment Lab Testing performed at: [address] ??[facility] [phone] Rocio Conteh MD LAB - HEMATOLOGY LISA ERAKAYLI Performing Organization Address [facility]/ZIP Co de Phone Number [id number] INSURANCE BILL [address] [place] [address] * LDH BLOOD (01/07/2019 11:51 AM CDT) LDH 171 118 - 222 IU/L [facility] Blood BLOOD SPECIMEN / Unknown 01/07/2019 11:51 AM CDT 01/07/2019 Narrative Resulting Agency Comment Lab Testing performed at: [employer] [address] ??[facility] [phone] Rocio Conteh MD LAB - CHEMISTRY CORAL SINGH Performing Organization Address [facility]/ZIP Co de Phone Number [facility] [address] [place] [address] * SKIN TEST PPD - POINT OF CARE (AMB) STL (01/07/2019 10:40 AM CDT) PPD 0 mm induration Expiration Date 07/01/21 Lot # [id number] Other MISCELLANEOUS SAMPLE S / Unknown 01/07/2019 10:40 AM CDT Rocio Conteh MD LAB - POINT OF CARE ORDERABLES * CELIAC AB SCREEN W REFLEX (11/27/2017 11:26 AM CDT) Antigliadin Antibody IgA 2 0 - 19 units [facility] INSURANCE BILL Comment: ?Negative ? 0 - 19 ?Weak Positive ? 20 - 30 ?Moderate to Strong Positive ?? >30 TTG Antibody IgA <2 0 - 3 U/mL [facility] INSURANCE BILL Comment: ? Negative ?0 - ??3 ? Weak Positive ?? 4 - 10 ? Positive ? >10 ?. ?Tissue Transglutaminase (tTG) has been identified ?as the endomysial antigen. ??Studies have demonstr- ?ated that endomysial IgA antibodies have over 99% ?specificity for gluten sensitive enteropathy. IgA Quantitative 79 52 - 221 mg/dL [facility] INSURANCE BILL Comment:FASTING Blood BLOOD SPECIMEN / Unknown 11/27/2017 11:26 AM CDT 11/27/2017 Narrative Resulting Agency Comment [facility] [address] ??[facility] [phone] Rocio Conteh MD LAB - SEROLOGY ORDER ARELI Performing Organization Address City/State/[facility] Co de Phone Number [facility] INSURANCE BILL [address] [place] [address] * XR HAND 3+ VW RIGHT (02/19/2015 3:14 PM SUPERVISOR CRACK OFF) Anatomical Region Laterality Modality Wrist / Hand Radiographic Tanya ging 02/19/2015 3:15 PM SUPERVISOR CRACK OFF Impressions 02/19/2015 3:16 PM SUPERVISOR CRACK OFF Healing Salter II fracture right fifth metacarpal. Narrative 02/19/2015 3:16 PM SUPERVISOR CRACK OFF 3 views of the right hand performed February 19, 2015. History: Fracture. AP, lateral, and oblique views of the right hand were obtained. No prior films are available for comparison. Periosteal new bone formation and sclerosis is seen at the site of the healing Salter II fracture of the right fifth metacarpal. There is slight volar angulation of the distal bony fragment. No other fractures or subluxations are seen. No radiopaque foreign bodies are identified in the visualized soft tissues of the hand. Procedure Note Ana Paula Martínez MD - 02/19/2015 3 views of the right hand performed February 19, 2015. History: Fracture. AP, lateral, and oblique views of the right hand were obtained. No prior films are available for comparison. Periosteal new bone formation and sclerosis is seen at the site of the healing Salter II fracture of the right fifth metacarpal. There is slight volar angulation of the distal bony fragment. No other fractures or subluxations are seen. No radiopaque foreign bodies are identified in the visualized soft tissues of the hand. IMPRESSION Healing Salter II fracture right fifth metacarpal. Rinku Malhotra MD DIAGNOSTIC IMAGING O RDERABLES * XR ANKLE 3+ VW LEFT MP (12/10/2013 3:56 PM CDT) Anatomical Region Laterality Modality Lower Extremity Radiographic Tanya ging 12/10/2013 3:59 PM CDT Impressions 12/10/2013 3:59 PM CDT No fracture. Narrative 12/10/2013 3:59 PM CDT 3 views of the left ankle performed December 10, 2013. History: Injured ankle after jumping on trampoline. AP, lateral, and oblique views of the left ankle were obtained. No prior radiographs of the ankle are available for comparison. There is no evidence of acute fracture, subluxation, or joint effusion. Procedure Note Ana Paula Martínez MD - 12/10/2013 3 views of the left ankle performed December 10, 2013. History: Injured ankle after jumping on trampoline. AP, lateral, and oblique views of the left ankle were obtained. No prior radiographs of the ankle are available for comparison. There is no evidence of acute fracture, subluxation, or joint effusion. IMPRESSION No fracture. Rocio Conteh MD DIAGNOSTIC IMAGING O RDERABLES * XR HAND 2 VW LEFT (06/14/2011) Anatomical Region Laterality Modality Wrist / Hand Other Toño Byrnes MD DIAGNOSTIC IMAGI NG ORDERABLES * (ABNORMAL) STREP A SCREEN - POINT OF CARE (AMB) (02/18/2010 3:35 PM SUPERVISOR CRACK OFF) Strep A Rapid POCT POS NEGATIVE - POSITVE Strep A Internal Control NEGATIVE - POSITIVE ENTIRE THROAT (SURFACE REGION OF NECK) / Unknown 02/18/2010 3:35 PM SUPERVISOR CRACK OFF Rocio Conteh MD LAB - POINT OF CARE ORDERABLES Care Teams Biometrics Analyst Relationship Specialty Start Date End Date Rocio Conteh MD PCP - General Pediatrics 11/27/17
--- OUTSIDE RECORDS SUMMARY | 2024-05-07 06:33 | XMS_ITS | Referral Summary ---
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
--- OUTSIDE RECORDS SUMMARY | 2024-05-07 08:00 | XMS_ITS | Clinical Summary ---
Author Organization [facility] Address [address] [place] [address] Phone Care Team Providers Care District Gauger Name Role Phone Unavailable Primary Care Provider [...] 11/03/2016 Insurance [employer] [facility] [employer] Commercial Advance Directives For more information, please contact: [phone] * Full Code (Latest Code Status on File) Date Activated Date Inactivated Comments 07/03/2022 1:19 PM 07/03/2022 5:57 PM * Full Code Date Activated Date Inactivated Comments 07/03/2022 8:31 AM 07/03/2022 1:19 PM
--- OUTSIDE RECORDS SUMMARY | 2024-05-07 08:00 | XMS_ITS | Patient Health Summary ---
Author Organization [facility] Address [address] [place] [address] Care Team Providers Care Housing Liaison Name Role Phone Rocio Conteh MD Primary Care Provider Note from [facility],non-owned Affiliates and Associated Physician Practices is amultiple site organization consisting of ambulatory clinics and hospital sitesin [place], [place], [place] and [place]. This disclosure is being madepursuant to the Care Everywhere program and may not contain all information available regarding this patient. Last updated 17.[facility] Allergies No known active allergies Medications * [...] CDT) Influenza A Antigen Rapid Negative Negative [facility] Influenza B Antigen Rapid Negative Negative [facility] SARS-CoV-2 Ag Negative Negative [facility] COVID Internal Control Acceptable Acceptable FARIBA AVELAR Lot # [id number] FARIBA AVELAR Expiration Date 02/02/22 FARIBA AVELAR Instrument Serial Number [id number] FARIBA AVELAR Microbiology SPECIMEN FROM NASAL FOSSAE [...] - POINT OF CARE ORDERABLES SHELLIE AVELAR [address] [place] [address] [phone] * SARS-COV-2 (COVID-19)+INFLU A+B PCR RAPID (07/29/2020 10:30 AM CDT) COVID-19 PCR Not detected Not detected 07/30/19 11:01 AM CDT [facility] Influenza A PCR Not detected Not detected 07/29/2020 11:01 AM CDT [facility] Influenza B PCR Not detected Not detected 07/29/2020 11:01 AM CDT [facility] Microbiology SPECIMEN FROM NASOPHARYNGEAL STRUCTURE / Unknown Collection / Unknown 07/29/2020 10:30 AM CDT 07/29/2020 10:35 AM CDT Narrative [facility] - 07/29/2020 11:01 AM CDT Influenza [...] acid amplification assay performance was validated by [facility]. This test has been authorized by [...] Cornelia-Mac MD LAB - MICROB IOLOGY ORDERABLES [facility] [address] [place] [address] * (ABNORMAL) DIFFERENTIAL MANUAL (07/29/2020 10:05 AM CDT) WBC Auto 9.6 x10E9/L 07/29/2020 11:01 AM CDT [facility] WBC Corrected 07/29/2020 11:01 AM CDT [facility] nRBC 07/29/2020 11:01 AM CDT [facility] Neutrophil % Manual 80(H) 31 - 78 % 07/29/2020 11:01 AM CDT [facility] Lymphocytes % Manual 15 13 - 54 % 07/29/2020 11:01 AM T [facility] Monocytes % Manual 4 4 - 13 % 07/29/2020 11:01 AM T [facility] Eosinophils % Manual 1 0 - 8 % 07/29/2020 11:01 AM T [facility] Cells Counted 100 # cells 07/29/2020 11:01 AM T [facility] RBC Morphology Normal 07/29/2020 11:01 AM T [facility] WBC Morph Normal 07/29/2020 11:01 AM T [facility] Platelet Estimation Normal 07/29/2020 11:01 AM T [facility] Blood BLOOD SPECIMEN / Unknown Venipuncture / Unknown 07/29/2020 10:05 AM CDT 07/29/2020 10:15 AM CDT Berkley Vela MD LAB - HEMATO LOGY ORDERABLES [facility] [place] [address] * (ABNORMAL) CBC W AUTO DIFFERENTIAL (07/29/2020 10:05 AM CDT) Only the most recent of3 resultswithin the time period is included. WBC 9.6 4.5 - 11.0 x10E9/L 07/29/2020 10:25 AM CDT [facility] WBC Corrected 07/29/2020 10:25 AM T [facility] RBC 4.78 4.50 - 5.30 x10E12/L 07/29/2020 10:25 AM T [facility] Hemoglobin 15.8 13.0 - 16.0 gm/dL 07/29/2020 10:25 AM T [facility] Hematocrit 42.5 37.0 - 49.0 % 07/29/2020 10:25 AM T [facility] MCV 88.9 78.0 - 98.0 fl 07/29/2020 10:25 AM T [facility] MCH 33.1 25.0 - 35.0 pg 07/29/2020 10:25 AM [facility] MCHC 37.2(H) 31.0 - 37.0 gm/dL 07/29/2020 10:25 AM [facility] Platelet Count 277 100 - 400 x10E9/L 07/29/2020 10:25 AM [facility] RDW-CV 11.6 11.5 - 14.0 % 07/29/2020 10:25 AM [facility] MPV 8.9 6.0 - 9.5 fl 07/29/2020 10:25 AM [facility] nRBC Auto 0 /100 WBC 07/29/2020 10:25 AM [facility] Blood BLOOD SPECIMEN / Unknown Venipuncture / Unknown 07/29/2020 10:05 AM CDT 07/29/2020 10:15 AM CDT Berkley Vela MD LAB - HEMATO LOGY ORDERABLES Performing Organization Address City/State/[facility] Co de Phone Number [facility] [address] [place] [phone] * (ABNORMAL) COMPREHENSIVE METABOLIC PANEL (07/29/2020 10:05 AM CDT) Only the most recent of2 resultswithin the time period is included. Pathologist [facility] Glucose 136(H) 70 - 105 mg/dL 07/29/2020 10:37 AM [facility] Sodium 137 136 - 145 mmol/L 07/29/2020 10:37 AM [facility] Potassium 3.7 3.5 - 5.1 mmol/L 07/29/2020 10:37 AM [facility] Chloride 106 98 - 107 mmol/L 07/29/2020 10:37 AM [facility] CO2 15(L) 20 - 28 mmol/L 07/29/2020 10:37 AM [facility] Calcium 10.01 9.08 - 10.48 mg/dL 07/29/2020 10:37 AM [facility] Anion Gap 16 5 - 20 mmol/L 07/29/2020 10:37 AM [facility] BUN 11.8 5.3 - 18.7 mg/dL 07/29/2020 10:37 AM [facility] Creatinine 0.94 0.61 - 1.07 mg/dL 07/29/2020 10:37 AM [facility] Alkaline Phosphatase 76 39 - 139 U/L 07/29/2020 10:37 AM [facility] ALT 16 6 - 46 U/L 07/29/2020 10:37 AM [facility] AST 38(H) 5 - 34 U/L 07/29/2020 10:37 AM [facility] Comment:Attention clinician: ??Reference Range change. Protein Total 8.3(H) 6.3 - 8.2 gm/dL 07/29/2020 10:37 AM [facility] Albumin 5.1(H) 3.3 - 4.9 gm/dL 07/29/2020 10:37 AM [facility] Bilirubin Total 0.8 0.3 - 1.2 mg/dL 07/29/2020 10:37 AM [facility] eGFR by MDRD >60 >60 mL/min/1.7 3m2 07/29/2020 10:37 AM [facility] eGFR by MDRD >60 >60 mL/min/1.7 3m2 07/29/2020 10:37 AM [facility] Blood BLOOD SPECIMEN / Unknown Venipuncture / Unknown 07/29/2020 10:05 AM T 07/29/2020 10:15 AM CDT Berkley Vela MD LAB - CHEMIS TRY ORDERABLES Performing Organization Address [facility]/ZIP Co de Phone Number [facility] [place] [address] * LIPASE BLOOD (07/29/2020 10:05 AM CDT) Lipase 20 10 - 220 U/L 07/29/2020 10:40 AM CDT [facility] Blood BLOOD SPECIMEN / Unknown Venipuncture / Unknown 07/29/2020 10:05 AM CDT 07/29/2020 10:15 AM CDT Berkley Vela MD LAB - CHEMIS TRY ORDERABLES Performing Organization Address [facility] Co de Phone Number [facility] [address] [place] [address] * TSH REFLEX FREE T4 (01/07/2019 11:51 AM CDT) TSH 1.840 0.450 - 4.500 uIU/mL [facility] INSURANCE BILL Blood BLOOD SPECIMEN / Unknown 01/07/2019 11:51 AM CDT 01/07/2019 Narrative Resulting Agency Comment Lab Testing performed at: [employer] ??[facility] [id number] Rocio Conteh MD LAB - CHEMISTRY CORAL SINGH Performing Organization Address City/[facility]/ZIP Co de Phone Number [facility] INSURANCE BILL [address] [place] [address] * C-REACTIVE PROTEIN (CRP) (01/07/2019 11:51 AM CDT) Only the most recent of2 resultswithin the time period is included. C-Reactive Protein <1 0 - 7 mg/L [facility] INSURANCE BILL Blood BLOOD SPECIMEN / Unknown 01/07/2019 11:51 AM CDT 01/07/2019 Narrative Resulting Agency Comment [facility]: [facility] [address] ??[place] [id number] Rocio Conteh MD LAB - CHEMISTRY CORAL SINGH [facility] INSURANCE BILL [address] [place] [address] * (ABNORMAL) ARIELA-CASTRO VIRUS PANEL (01/07/2019 11:51 [...] Resulting Agency Comment Lab Testing performed at: [employer] [address] ??[facility] [id number] Rocio Conteh MD LAB - CHEMISTRY CORAL SINGH [facility] INSURANCE BILL [address] [place] [address] * SED RATE AUTO (ESR) (01/07/2019 11:51 AM CDT) Only the most recent of2 resultswithin the time period is included. Erythrocyte Sedimentation Rate Westergren 2 0 - 15 mm/hr [facility] Blood BLOOD SPECIMEN / Unknown 01/07/2019 11:51 AM CDT 01/07/2019 Narrative Resulting Agency Comment Lab Testing performed at: [address] ??[facility] [id number] Rocio Conteh MD LAB - HEMATOLOGY LISA ERAKAYLI Performing Organization Address [facility]/ZIP Co de Phone Number [facility] INSURANCE BILL [address] [place] [address] * LDH BLOOD (01/07/2019 11:51 AM CDT) LDH 171 118 - 222 IU/L [facility] Blood BLOOD SPECIMEN / Unknown 01/07/2019 11:51 AM CDT 01/07/2019 Narrative Resulting Agency Comment Lab Testing performed at: [facility] [address] ??[facility] [id number] Rocio Conteh MD LAB - CHEMISTRY CORAL SINGH Performing Organization Address [facility]/ZIP Co de Phone Number [facility] INSURANCE BILL [address] [place] [address] * SKIN TEST PPD - POINT OF CARE (AMB) STL (01/07/2019 10:40 AM CDT) PPD 0 mm induration Expiration Date 07/01/21 Lot # [id number] Other MISCELLANEOUS SAMPLE S / Unknown 01/07/2019 [...] AM CDT 11/27/2017 Narrative Resulting Agency Comment [facility] [address] ??[facility] [id number] Rocio Conteh MD LAB - SEROLOGY ORDER ARELI Performing Organization Address City/State/[facility] Co de Phone Number [facility] INSURANCE BILL [address] [place] [address] * XR HAND 3+ VW RIGHT (02/19/2015 3:14 PM PERMIT SPECIALIST) Anatomical Region Laterality Modality Wrist / Hand Radiographic Tanya ging 02/19/2015 3:15 PM PERMIT SPECIALIST Impressions 02/19/2015 3:16 PM PERMIT SPECIALIST Healing Salter II fracture right fifth metacarpal. Narrative 02/19/2015 3:16 PM PERMIT SPECIALIST 3 views of the right hand performed [...] POINT OF CARE (AMB) (02/18/2010 3:35 PM PERMIT SPECIALIST) Strep A Rapid POCT POS NEGATIVE - POSITVE Strep A Internal Control NEGATIVE - POSITIVE ENTIRE THROAT (SURFACE REGION OF NECK) / Unknown 02/18/2010 3:35 PM PERMIT SPECIALIST Rocio Conteh MD LAB - POINT OF CARE ORDERABLES Care Teams Housing Liaison Relationship Specialty Start Date End Date Rocio Conteh MD PCP - General Pediatrics 11/27/17
--- OUTSIDE RECORDS SUMMARY | 2024-05-07 08:00 | XMS_ITS | Clinical Summary ---
Author Organization [facility] [employer] Address [address] [address] [facility] [place] [address] Care Team Providers Care Tier Truck Driver Name Role Phone Rocio Conteh MD Primary Care Provider [phone] Source Comments [facility] [employer],non-owned Affiliates and Associated Physician Practices is amultiple site organization consisting of ambulatory clinics and hospital sitesin [place], [place], [place] and [place]. This disclosure is being madepursuant to the Care Everywhere program and may not contain all information available regarding this patient. Last updated 17.[employer] Allergies No known active allergies Medications * [...] CDT) No Radha Willson, IMANI Care Teams Tier Truck Driver Relationship Specialty Start Date End Date Rocio Conteh MD PCP - General Pediatrics 11/27/17
--- OUTSIDE RECORDS SUMMARY | 2024-05-07 08:00 | XMS_ITS | Clinical Summary ---
Author Organization [facility] Address [address] [place] [address]. [place], [place] [address] [place] [address] Care Team Providers Care Rn Placement Name Role Phone Genevieve Nagy MD Primary Care Provider [phone] Allergies No known active allergies Medications hydrOXYzine [...] patient's age to complete this topic Insurance [facility] Advance Directives * Full Code (Latest Code Status on File) Date Activated Date Inactivated Comments 11/11/2020 3:40 PM 11/12/2020 1:22 PM Care Teams Rn Placement Relationship Specialty Start Date End Date Genevieve Nagy MD [address] [facility] [address] [address] [place] [address] PCP - General FAMILY PRACTICE 10/02/22
--- OUTSIDE RECORDS SUMMARY | 2024-05-07 08:00 | XMS_ITS | Clinical Summary ---
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
--- OUTSIDE RECORDS SUMMARY | 2024-05-07 08:00 | XMS_ITS | Referral Summary ---
Author Organization [facility] [employer] Address [address] [place] [address] Care Team Providers Care Video Library Assistant Name Role Phone Rocio Conteh MD Primary Care Provider [phone] Source Comments [facility] [employer],non-owned Affiliates and Associated Physician Practices is amultiple site organization consisting of ambulatory clinics and hospital sitesin [place], [place], [place] and [place]. This disclosure is being madepursuant to the Care Everywhere program and may not contain all information available regarding this patient. Last updated 17.[facility] Allergies No known active allergies Medications * [...] CDT) No Radha Willson, IMANI Care Teams Video Library Assistant Relationship Specialty Start Date End Date Rocio oCnteh MD PCP - General Pediatrics 11/27/17
--- OUTSIDE RECORDS SUMMARY | 2024-05-07 08:00 | XMS_ITS | Referral Summary ---
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
--- NOTE | 2024-05-07 08:32 | ED_ITS ---
HPI - General Adult General Chief complaint: Anxiety Stated complaint: panic attack Time Seen by Provider: 05/07/24 07:29 History of Present Illness HPI narrative: 23-year-old male present to the emergency department for evaluation for multiple complaints. Patient states he is currently having panic attacks. Patient attributes this to stress related to his ongoing abdominal pain. Patient was scheduled to have a colonoscopy yesterday when he got to the GI office he was told that he needed to pay 1400 dollars upfront. Patient became anxious because he was not able to pay this. Patient then went to [facility] and then presented to our emergency department. Patient states he is feeling anxious have shortness of breath and is asking for medications to help him sleep. Patient does admit to daily THC use and was informed that the underlying stomach issue may be secondary to cannabinoid hyperemesis syndrome. Patient is well- appearing at time of evaluation Related Data Allergies Allergy/AdvReac Type Severity Reaction Status Date / Time No Known Allergies Allergy Verified 03/26/24 11:11 Review of Systems 2 Review of Systems: All systems reviewed & are unremarkable except as noted in HPI and below PMFSH Past Medical History Medical History History of anxiety Social History Social History Smoking packs per day: 1 Smoking cigarettes per day: 20.0 Smoking status: Current every day smoker Tobacco type: e-cigarettes/vaping Alcohol intake: current Substance use type: marijuana Exam 2 Narrative: APPEARANCE: Well-appearing with anxious affect HEAD: normocephalic, atraumatic. EYES: PERRLA/EOMI, conjunctivae clear. NOSE: Normal no drainage EARS:TMS clear with good light reflex. THROAT: Pharynx clear, no exudate. NECK: Supple. No adenopathy, no masses. RESPIRATORY: Airway patent, respirations nonlabored. Clear to auscultation bilaterally, no rales, rhonchi, wheezing. CARDIOVASCULAR: Regular rate and rhythm without murmurs rubs or gallops. ABDOMINAL: Soft, nontender, nondistended, normal bowel sounds MUSCULOSKELETAL: Moves all extremities. Strength/ROM intact, No edema, No calf tenderness. NEURO: Alert. Cranial nerves II through XII intact. Good gait. Good coordination SKIN: Warm, dry. Normal Color Course Vital Signs Vital signs: Vital Signs Temperature 97.8 F 05/07/24 06:31 Pulse Rate 118 H 05/07/24 06:31 Respiratory Rate 26 H 05/07/24 06:31 Blood Pressure 146/89 H 05/07/24 06:31 Pulse Oximetry 100 05/07/24 06:31 Oxygen Delivery Room Air 05/07/24 06:31 Temperature 97.8 F 05/07/24 06:31 Pulse Rate 98 05/07/24 08:49 Respiratory Rate 13 05/07/24 08:49 Blood Pressure 124/92 H 05/07/24 08:49 Pulse Oximetry 100 05/07/24 08:49 Oxygen Delivery Room Air 05/07/24 06:31 Medical Decision Making MDM Narrative Medical decision making narrative: 23-year-old male presents to the emergency department for evaluation for increased anxiety. Patient was afebrile with no leukocytosis and hemoglobin of 15. Patient has an INR 1.0, patient's bicarb level was 21, BUN was 8. No other significant abnormalities on the patient's CMP. Patient did feel improved with treatment. Patient was encouraged of close follow-up with a primary care physician. Differential Diagnosis Differential Diagnosis: Anxiety, hyperemesis cannabinoid syndrome, dehydration Vital Signs Vital Signs: Vital Signs Temperature 97.8 F 05/07/24 06:31 Pulse Rate 118 H 05/07/24 06:31 Respiratory Rate 26 H 05/07/24 06:31 Blood Pressure 146/89 H 05/07/24 06:31 Pulse Oximetry 100 05/07/24 06:31 Oxygen Delivery Room Air 05/07/24 06:31 Temperature 97.8 F 05/07/24 06:31 Pulse Rate 98 05/07/24 08:49 Respiratory Rate 13 05/07/24 08:49 Blood Pressure 124/92 H 05/07/24 08:49 Pulse Oximetry 100 05/07/24 08:49 Oxygen Delivery Room Air 05/07/24 06:31 Lab Data Lab results reviewed: Yes I reviewed the patient's lab results. 05/07/24 08:44 05/07/24 08:44 Labs: Lab Results 05/07/24 Range/Units 08:44 WBC 6.7 (4.5-10.0) K/mm3 RBC 4.55 L (4.6-6.20) M/mm3 Hgb 15.0 (14.0-18.0) g/dL Hct 41.3 L (42.0-52.0) % MCV 90.8 (80-100) fl MCH 33.0 (26-34) pg MCHC 36.3 H (32-36) g/dl RDW 11.6 (11.5-14.5) % Plt Count 243 (150-375) k/mm3 MPV 8.3 (7.4-10.4) fl Immature Gran % (Auto) 0.3 (0-0.5) % Neut % (Auto) 71.5 (45.5-73.1) % Lymph % (Auto) 20.0 (18.3-44.2) % Ross % (Auto) 7.5 (2.6-8.5) % Eos % (Auto) 0.6 (0-4.4) % Baso % (Auto) 0.1 L (0.2-1.2) % Lymph # (Auto) 1.34 (0.9-3.2) K/mm3 Ross # (Auto) 0.5 (0.1-0.6) K/mm3 Eos # (Auto) 0.0 (0-0.3) K/mm3 Baso # (Auto) 0.0 (0.0-0.1) K/mm3 Abs Immat Gran (auto) 0.02 (0.00-0.031) K/mm3 Absolute Neuts (auto) 4.8 (1.3-6.7) K/mm3 Absolute Nucleated RBC 0.000 (0.0-0.012) K/mm3 Nucleated RBC % 0.0 (0.0-0.2) % PT 13.5 (11.1-14.7) Seconds INR 1.0 APTT 25.9 (22.3-36.8) Seconds Sodium 137 (137-145) mmol/L Potassium 3.4 (3.4-5.0) mmol/L Chloride 104 (98-107) mmol/L Carbon Dioxide 21 L (22-30) mmol/L Anion Gap 12 (4-12) mmol/L BUN 8 L D (9-20) mg/dL Creatinine 0.74 (0.7-1.3) mg/dL Estim Creat Clear Calc 120 ml/min Estimated GFR > 60 (59 - ) Glucose 106 (65-110) mg/dL Lactic Acid 0.8 (0.7-2.0) mmol/L Calcium 10.1 (8.4-10.2) mg/dL Total Bilirubin 0.9 (0.2-1.3) mg/dL AST 23 (17-59) U/L ALT 18 (6-50) U/L Alkaline Phosphatase 64 (38-126) U/L Total Protein 8.0 (6.3-8.2) g/dL Albumin 5.0 (3.5-5.1) g/dL Lipase 38 (23-300) U/L Discharge Plan Discharge Clinical Impression: Abdominal pain, Anxiety Patient Disposition: Home, Self-Care Condition: Stable Instructions: Antibiotic Form, Abdominal Pain (ED), Anxiety (ED) Additional Instructions: Have close follow-up with a primary care physician. Continue to educate herself on cannabinoid hyperemesis syndrome. Continue have close follow-up with GI. If you have any worsening symptoms then please call or return to the emergency department. Omeprazole as directed for 14 days to help with underlying stomach issues. Patient Language: Guatemalan Prescriptions: New omeprazole 20 mg capsule,delayed release(DR/EC) 20 mg PO DAILY 14 Days Qty: 14 0RF No Action cephalexin 500 mg capsule 500 mg PO Q12H Qty: 20 0RF cephalexin 500 mg capsule 500 mg PO Q8H 5 Days Qty: 15 0RF hydrocodone-acetaminophen 5-325 mg tablet 1 tablet PO Q8H PRN (Reason: pain) Qty: 20 0RF hydrocodone-acetaminophen 5-325 mg tablet 1 tablet PO Q8H PRN (Reason: pain) Qty: 10 0RF ondansetron 4 mg tablet,disintegrating 4 mg PO Q6-8H PRN (Reason: nausea and vomiting) Qty: 14 0RF Follow-up/Referrals: Deng Baumann MD [Physician] - UNKNOWN,DOCTOR [Primary Care Provider] -
[2024-05-07 08:48] LABS: Basophils Percent Auto 0.1 % (0.2-1.2); Eosinophils Percent Auto 0.6 % (0-4.4); Hematocrit 41.3 % (42.0-52.0); Immature Granulocyte Absolute 0.02 K/mm3 (0.00-0.031); Immature Granulocyte Percent A 0.3 % (0-0.5); Lymphocytes Absolute Auto 1.34 K/mm3 (0.9-3.2); Mean Corpuscular HGB Conc 36.3 g/dl (32-36); Mean Corpuscular Volume 90.8 fl (80-100); Mean Platelet Volume 8.3 fl (7.4-10.4); Monocytes Absolute Auto 0.5 K/mm3 (0.1-0.6); Monocytes Percent Auto 7.5 % (2.6-8.5); Neutrophils Absolute Auto 4.8 K/mm3 (1.3-6.7); Neutrophils Percent Auto 71.5 % (45.5-73.1); Platelet Count Result 243 k/mm3 (150-375); Red Blood Count 4.55 M/mm3 (4.6-6.20); Red Cell Distribution Width 11.6 % (11.5-14.5); White Blood Count 6.7 K/mm3 (4.5-10.0)
[2024-05-07] MEDS: ONDANSETRON INJ 4 MG/2 ML VIAL IV PUSH (08:48)
[2024-05-07] MEDS: LORazepam INJ (*CRX) 2 MG/ML VIAL 1 MG IV PUSH (08:48)
[2024-05-07 08:49] VITALS: BP 124/92; PULSE 98; RESP 13; O2SAT 100
[2024-05-07 08:59] LABS: Lactic Acid Reflex 0.8 mmol/L (0.7-2.0)
[2024-05-07 09:00] LABS: Alanine Aminotransferase 18 U/L (6-50); Alkaline Phosphatase 64 U/L (38-126); Anion Gap 12 mmol/L (4-12); Aspartate Amino Transferase 23 U/L (17-59); Bilirubin,Total 0.9 mg/dL (0.2-1.3); Blood Urea Nitrogen 8 mg/dL (9-20); Calcium 10.1 mg/dL (8.4-10.2); Carbon Dioxide 21 mmol/L (22-30); Chloride 104 mmol/L (98-107); Estimated CRCL calculation 120 ml/min; Estimated Glomerular Filt Rate > 60; Glucose 106 mg/dL (65-110); Lipase 38 U/L (23-300); Potassium 3.4 mmol/L (3.4-5.0); Sodium 137 mmol/L (137-145)
[2024-05-07 09:36] LABS: Prothrombin Time 13.5 Seconds (11.1-14.7)
[2024-05-07 09:43] LABS: Partial Thromboplastin Time 25.9 Seconds (22.3-36.8)
[2024-05-07] MEDS: LORazepam (*CRX) 1 MG TABLET PO (09:54)
== END 2024-05-07 10:01 | disposition home or self-care (01) ==
PROVIDERS: Emergency Provider Emergency Medicine
DX: F41.9 Anxiety disorder, unspecified (principal); R10.9 Unspecified abdominal pain; F17.290 Nicotine dependence, other tobacco product, uncomplicated
CPT/HCPCS: 36415; 80053; 83605; 83690; 85025; 85610; 85730; 96374; 99284; A9270; J2060; J2405